=== PATIENT | female | born 2000 | race Caucasian/White ===

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

== ENCOUNTER → 2021-06-10 09:56 | Outpatient (BNVA) | payer BC, MEDICAID, SELFPAY | PROVIDERS: PCP Nurse Practitioner Family; Visit Provider Nurse Practitioner Family | DX: Z20.822 Contact with and (suspected) exposure to COVID-19 (principal) | CPT/HCPCS: 87635 ==

== ENCOUNTER 2021-07-27 09:30 | Outpatient (CLI) | payer BC, MEDICAID, SELFPAY ==
--- NOTE | 2021-07-27 09:42 | NM_ITS ---
WS: [id number] NUCLEAR MEDICINE HIDA SCAN CLINICAL INFORMATION: RUQ PAIN TECHNIQUE: Following intravenous administration of 7.7 mCi of technetium 99m mebrofenin, images of th e abdomen were obtained over the course of 60 minutes. Next, gallbladder ejection fraction was determ ined by obtaining preprandial and one-hour postprandial images of the gallbladder following oral dillon stion of Ensure. COMPARISON: Ultrasound 12/24/20 FINDINGS: Normal hepatic uptake at 5 minutes. Normal hepatic excretion. Normal biliary to bowel transit. Gallbl adder is not visualized by 60 minutes. Imaging was extended and gallbladder visualized at 120 minutes . Gallbladder appears contracted. No significant emptying on the gallbladder ejection fraction images. NM/NM hepatobiliary w phar* [id number] IMPRESSION: 1. Delayed gallbladder filling with small contracted gallbladder seen at 120 m inutes. 2. No significant emptying on the ejection fraction imaging. 3. Findings compatible with gallbladder dysfunction and suspicious for chronic acalculous cholecystitis. No cholelithiasis seen on the prior ultrasound imagi ng.
== END 2021-07-27 09:31 | disposition home or self-care (01) ==
LOC: RAD 09:33
PROVIDERS: PCP Nurse Practitioner Family; Visit Provider Nurse Practitioner Family
DX: R10.11 Right upper quadrant pain (principal)
CPT/HCPCS: 78227; A9537

== ENCOUNTER 2021-08-20 08:38 | Day surgery (SDC) | payer BC, MEDICAID, SELFPAY ==
[2021-08-19 15:42] VITALS: BMI 40.2
[2021-08-20] VITALS (9 sets, daily range): BP systolic 108–131; BP diastolic 64–91; PULSE 69–116; RESP 18–21; TEMP 36.1–36.4; O2SAT 95–100
--- NOTE | 2021-08-20 09:07 | P.HP_ITS ---
Same Day Surgery H&P Indication for Procedure/HPI DATE OF PROCEDURE: August 20, 2021 CHIEF COMPLAINT/INDICATIONFOR SURGICAL PROCEDURE: biliary dyskinesia PREOP DIAGNOSIS: biliary dyskinesia PLANNED PROCEDURE: Operation Date: 08/20/21 10:00 Proposed Procedures p Laparoscopic Cholecystectomy 35061/k82.8(Not Applicable) - Trey Moore MD Medications/Allergies* Home Medications Medication Instructions Recorded Confirmed Type sertraline 50 mg tablet 50 mg PO DAILY 08/19/21 08/20/21 History Allergies/Adverse Reactions Allergy/AdvReac Type Severity Reaction Status Date / Time grape flavor Allergy ALGY-Rash Verified 08/20/21 08:53 Pertinent History/Comorbid Conditions* Surgical History (Updated 08/11/21 @ 10:54 by Trey Moore MD) History of wisdom tooth extraction Social History Smoking and tobacco status: current every day smoker cigarettes Pertinent Exam Findings alert, oriented x 3 and regular rate & rhythm Recommendations Surgery/Procedure today Coding Level of Care Code Acute Performance Test Architect for Ish Garcia
[2021-08-20 09:12] LABS: OR HCG Qualitative Urine Negative (Negative)
--- NOTE | 2021-08-20 10:10 | ANES.PREANE2 ---
Documented by User: Morena Gerardo CRNA 08/20/21 10:45 Pre-Anesthetic Assessment Height/Weight: Height 1.57 m Weight 99.79 kg Temp Pulse Resp BP Pulse Ox 97.5 F L 74 18 112/64 98 08/20/21 09:19 08/20/21 09:19 08/20/21 09:19 08/20/21 09:19 08/20/21 09:19 Preop Diagnosis: biliary dyskinesia Operation Date: 08/20/21 10:00 Proposed Procedures p Laparoscopic Cholecystectomy 24359/k82.8(Not Applicable) - Trey Moore MD Familial anesthetic complications: none Was Beta Eleanor taken within 24 hours: N/A Was Clonidine taken within 24 hours: N/A Last intake: Intake Last Liquid Date 08/19/21 Last Liquid Time 23:00 Last Solid Date 08/19/21 Last Solid Time 16:00 Social No alcohol and No tobacco Exam alert, oriented x 3 and clear to auscultation bilaterally Airway Submandibular: within normal limits Cervical ROM: within normal limits Mallampati: Class I Dentition: chipped (front top) and full History/ROS No significant complaints Anesthetic Plan ASA status: 1 Anesthesia: Anesthesia Evaluation and General Risk of > 500 ml blood loss (7ml/kg in children): No Medications/Allergies Home Medications Medication Instructions Recorded Confirmed Last Taken Type sertraline 50 mg tablet 50 mg PO DAILY 08/19/21 08/20/21 08/18/21 History docusate sodium 100 mg capsule 100 mg PO BID #30 cap 08/20/21 Unknown Rx (Colace) hydrocodone 5 mg-acetaminophen 325 1 tab PO Q6H PRN #20 tab 08/20/21 Unknown Rx mg tablet ondansetron HCl 4 mg tablet 4 mg PO Q8H 5 Days #15 tab 08/20/21 Unknown Rx Allergies Allergy/AdvReac Type Severity Reaction Status Date / Time grape flavor Allergy ALGY-Rash Verified 08/20/21 08:53 Current Medications Generic Name Dose Route Start Last Admin Trade Name Freq PRN Reason Stop Dose Admin Sodium Chloride 1,000 mls @ 30 mls/hr 08/20/21 09:00 08/20/21 10:33 Sodium Chloride 0.9% IV 08/21/21 08:59 30 mls/hr .Q24H WILLIAM Administration PFSH Anesthesia Surgical History (Updated 08/20/21 @ 10:12 by Trey Moore MD) History of wisdom tooth extraction Status post laparoscopic cholecystectomy (08/20/21) Social History Smoking and tobacco status: current every day smoker cigarettes Female Reproductive History Date of last menstrual period: 12/29/19 Data Anesthesia Cardiac Studies: No Data to Display
[2021-08-20] MEDS: sodium chloride 0.9% 1,000 ML 30 ML IV (10:33)
--- NOTE | 2021-08-20 11:16 | P.OP_ITS ---
Operative Report Date of procedure: August 20, 2021 Pre-op diagnosis: Biliary dyskinesia Post-op diagnosis: same Procedure done: Laparoscopic cholecystectomy Specimens removed/disposition: Gallbladder Surgeon: Trey Moore Anesthesia: General Condition: stable Disposition: PACU Procedure: The patient was taken to the operating room and was intubated under general anesthesia. After the antibiotic had been administered, the abdomen was prepped and draped in a sterile manner. Using a #15 blade, a 1 centimeter infraumbilical curvilinear incision was made and using an open Phlilip technique the peritoneal cavity was entered. A 10 millimeter port was placed and 15 millimeters of pneumoperitoneum was created. A 10 millimeter, 30 degrees scope was then introduced. Three 5 millimeter ports were placed in the epigastric, midclavicular and the anterior axillary line two fingerbreadths below the costal margin on the right side under the direct visualization. Ratcheted forceps were introduced into the lateral most port and was used to retract the fundus of the gallbladder cephalad and using forceps the infundibulum of the gallbladder was retracted laterally. Using L-hook cautery the peritoneum overlying the Calot's triangle was opened medially and laterally until the cystic duct and the cystic artery were skeletonized. Dissection was carried along the body of the gallblad cullen and after ensuring critical view of safety, 4 clips applied on the cystic duct and 3 clips applied on the cystic artery and cut leaving, 3 clips on the remaining portion of the duct and 2 clips on the remaining portion of the artery. The rest of the gallbladder was dissected off the liver using L-hook cautery. There was no bleeding or bile leaking noted from the gallbladder fossa and the clips appeared to be in place. An EndoCatch bag was introduced to remove the gallbladder. All the ports were removed under direct visualization and there was no bleeding noted from the port sites. The fascia of the umbilicus was closed using [id number] Vicryl sutures and the subcutaneous tissue was approximated using 3-0 Vicryl sutures. The skin at all four ports were closed using 4-0 Monocryl and Dermabond. A total of 10 millimeters of 0.5% Marcaine was infiltrated around the port sites. The patient was stable throughout the procedure.
[2021-08-20] MEDS: ondansetron 2 mg/ML SDV 2 mL 4 MG IVP (11:27)
[2021-08-20] MEDS: fentaNYL 50 mcg/mL INJ 2mL IVP (11:28)
[2021-08-20] MEDS: HYDROcodone-acetaminophen 5-325 mg Tablet 1 TAB PO (11:53)
--- NOTE | 2021-08-20 17:41 | ANE.PACU2 ---
Inpatient post-anesthesia follow up: Airway intact: Yes Vital signs: Temperature 97.4 F Pulse Rate 69 Respiratory Rate 18 Blood Pressure 123/69 Pulse Oximetry 98 Oxygen Delivery Me thod Room Air Oxygen Flow Rate 8 Fraction of Inspir ed Oxygen Hydration adequate: Yes Nausea and vomiting: No Pain level: 3 Mental status: Baseline
== END 2021-08-20 12:30 | disposition home or self-care (01) ==
PROVIDERS: Anesthesiology; PCP Nurse Practitioner Family; Visit Provider Surgery
PROC: 0FT44ZZ Resection of Gallbladder, Percutaneous Endoscopic Approach (ICD-10-PCS; CPT 47562; principal; 2021-08-20 09:50)
DX: K82.8 Other specified diseases of gallbladder (principal); F17.210 Nicotine dependence, cigarettes, uncomplicated
CPT/HCPCS: 47562; 84703; 88304; J0690; J1100; J1200; J1885; J2250; J2405; J2704; J2710; J3010; J3490; J7030

== ENCOUNTER 2021-08-24 13:22 | Emergency (ER) | payer BC, MEDICAID, SELFPAY ==
[2021-08-24 13:42] VITALS: BP 127/79; PULSE 72; RESP 18; TEMP 36.6; O2SAT 98; BMI 40.2
--- NOTE | 2021-08-24 13:49 | ED_ITS ---
HPI - Abdominal Pain General: Chief Complaint: Abdominal Pain Stated Complaint: possible rip of inner stitches Time Seen by Provider: 08/24/21 13:47 Source: patient Mode of arrival: ambulatory Limitations: no limitations History of Present Illness: 21-year-old female postop day #4 status post laparoscopic cholecystectomy. 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 There is no dehiscence of the wound there is no redness erythema no drainage no bleeding. No other symptoms no injury no direct blow she is not doing any heavy lifting. MD elicited complaint: abdominal pain Onset (ago): minute(s) Pain Consistency: intermittent Location: RUQ Severity: mild Quality: sharp Radiation: none Migration to: no migration Exacerbating factors: nothing Relieving factors: nothing Associated Symptoms: Denies anorexia, belching, bloating, change in bowel habits, change in stool character, chills, coffee ground emesis, constipation, GI cramping, diarrhea, dyspepsia, dysuria, excessive flatus, fever(s), heartburn, hematochezia, hematuria, hematemesis, fecal incontinence, loose stools, melena, nausea, poor appetite, syncope and vomiting Related Data: Date of Last Menstrual Period: 12/29/19 Review of Systems Const: Denies: fever(s) or chills Card: Denies: syncope Resp: Denies: dyspnea, productive cough or non-productive cough GI: Denies: nausea, vomiting, hematemesis, coffee ground emesis, heartburn, diarrhea, constipation, bloating, GI cramping, belching, excessive flatus, fecal incontinence, change in bowel habits, change in stool character, hematochezia or melena : Denies: dysuria or hematuria Skin/Breast: Denies: rash or pruritus PFSH ED PFSH: Surgical History History of wisdom tooth extraction Status post laparoscopic cholecystectomy (08/20/21) Social History Smoking and tobacco status: current every day smoker cigarettes Female Reproductive History: Date of last menstrual period: 12/29/19 Physical Exam Const: COMMON NORMALS: no acute distress GENERAL APPEARANCE: cooperative and comfortable ORIENTATION/CONSCIOUSNESS: Yes awake, Yes oriented to person, Yes oriented to place and Yes oriented to time HENMT: COMMON NORMALS: normocephalic and atraumatic HEAD & SCALP: normocephalic and atraumatic Neck/C-Spine: COMMON NORMALS: no JVD Resp: COMMON NORMALS: normal respiratory effort, No retractions, No use of accessory muscles and clear to auscultation bilaterally AUSCULTATION: clear to auscultation bilaterally Cardio: COMMON NORMALS: no JVD, regular rate, regular rhythm and No murmurs present (Cardio) RATE: regular rate RHYTHM: regular rhythm GI: COMMON NORMALS: Soft to palpation and No hepatosplenomegaly present AUSCULTATION: Yes normoactive bowel sounds PALPATION: Yes Soft to palpation, No Tenderness to palpation present (GI), No Guarding due to palpation present (GI) and Yes No hepatosplenomegaly present Neuro: SENSORIUM/ORIENTATION: Yes oriented to person, Yes oriented to place and Yes oriented to time Skin: OTHER: Dermabond over abdominal port incisions no evident skin breakdown ulceration erythema no drainage no bleeding no induration no palpable defects of the abdominal wall no masses palpable underlying the skin incisions Course Vital Signs: Vital signs: Vital Signs Temperature 97.9 F 08/24/21 13:42 Pulse Rate 72 08/24/21 13:42 Respiratory Rate 18 08/24/21 13:42 Blood Pressure 127/79 08/24/21 13:42 Pulse Oximetry 98 08/24/21 13:42 MDM - Abdominal Pain Medical Decision Making No intervention needed observe avoid stretching of the abdominal wall reaching above the head no heavy lifting follow-up with Dr. Moore tomorrow as previously scheduled Discharge Plan Discharge Patient Disposition: Home Clinical Impression: Status post laparoscopic cholecystectomy, Abdominal wall pain Condition: Stable Prescriptions: No Action sertraline 50 mg tablet 50 mg PO DAILY 0RF hydrocodone-acetaminophen 5-325 mg tablet 1 tab PO Q6H PRN (Reason: pain) Qty: 20 0RF ondansetron HCl 4 mg tablet 4 mg PO Q8H 5 Days Qty: 15 0RF Colace 100 mg capsule 100 mg PO BID Qty: 30 0RF Discharge Orders: Discharge ED (Routine); Ordered 08/24/21 Ordered By: Steven Ross Referrals: Kayla Gregg FNP [Primary Care Provider] - Discharge Diet: Usual diet Discharge Activity: Limit activity as instructed Patient Instructions: Abdominal Pain (ED), Opioid Safety Activity Restrictions/Additional Instructions: Follow-up with Dr. 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
[2021-08-24 14:00] VITALS: BP 127/79; PULSE 72; RESP 18; O2SAT 98
== END 2021-08-24 14:03 | disposition home or self-care (01) ==
PROVIDERS: Emergency Provider Family Medicine; PCP Nurse Practitioner Family
DX: R10.11 Right upper quadrant pain (principal); Z98.890 Other specified postprocedural states; Z90.49 Acquired absence of other specified parts of digestive tract; F17.210 Nicotine dependence, cigarettes, uncomplicated
CPT/HCPCS: 99281

== ENCOUNTER → 2021-08-25 11:03 | Outpatient (BNVA) | payer BC, MEDICAID, SELFPAY | PROVIDERS: PCP Nurse Practitioner Family; Visit Provider Surgery | DX: Z98.890 Other specified postprocedural states (principal); Z90.49 Acquired absence of other specified parts of digestive tract ==

== ENCOUNTER → 2021-12-25 15:25 | Outpatient (BNVA) | payer BC, MEDICAID, SELFPAY | PROVIDERS: PCP Nurse Practitioner Family; Visit Provider Obstetrics & Gynecology | DX: Z30.9 Encounter for contraceptive management, unspecified (principal) | CPT/HCPCS: 81025 ==

== ENCOUNTER 2022-05-03 16:46 | Outpatient (CLI) | payer BC, MEDICAID, SELFPAY ==
--- NOTE | 2022-05-03 17:05 | MR_ITS ---
WS: [id number] MRI CERVICAL SPINE NONCONTRAST TECHNIQUE: Sagittal T1, T2 and STIR imaging. Axial T2, gradient, and fiesta imaging. CLINICAL INFORMATION: NECK PAIN COMPARISON: None. FINDINGS: Straightening with slight reversal normal cervical lordosis. Cord signal is normal. Tiny central prot rusions in the cervical spine more prominent at C6-C7. C2-C3: Normal. C3-C4: Mild disc bulging with slight effacement of ventral thecal sac. Mild LEFT and no RIGHT foramin al narrowing. Mild facet arthropathy. Spinal canal is patent. C4-C5: Tiny shallow central protrusion with a tiny annular fissure. Mild facet arthropathy. Spinal ca nal and foramen are patent. C5-C6: Minimal disc bulging with slight effacement of ventral thecal sac. Mild facet arthropathy. Spi nal canal and foramen are patent. C6-C7: Mild disc bulging with osteophytic ridging. Tiny RIGHT pericentral protrusion. Slight contact of the cervical cord with mild central canal stenosis. Mild LEFT and no significant RIGHT foraminal n arrowing. C7-T1: Normal Visualized brain stem structures: Normal. Prevertebral soft tissues: Normal. MR/MR cervical spin wo con* [id number] IMPRESSION: 1. Straightening with slight reversal normal cervical lordosis. No high-grade central canal narrowing. Cord signal is normal. 2. Small shallow RIGHT pericentral protrusion C6-C7 with slight indentation on the cervical cord with mild central canal stenosis. Mild LEFT bony foraminal n arrowing at this level. 3. Mild LEFT C3-C4 and LEFT C5-C6 foraminal narrowing.
== END 2022-05-03 16:47 | disposition home or self-care (01) ==
LOC: RAD 16:47
PROVIDERS: PCP Nurse Practitioner Family; Visit Provider Nurse Practitioner Family
DX: M50.223 Other cervical disc displacement at C6-C7 level (principal); M48.02 Spinal stenosis, cervical region
CPT/HCPCS: 72141

== ENCOUNTER → 2022-07-04 16:44 | Outpatient (BNVA) | payer BC, MEDICAID, SELFPAY | PROVIDERS: PCP Nurse Practitioner Family; Visit Provider Nurse Practitioner Family | DX: J02.9 Acute pharyngitis, unspecified (principal) | CPT/HCPCS: 87071; 87880 ==

== ENCOUNTER → 2023-04-19 07:07 | Day surgery (SDC) | payer BC, MEDICAID, SELFPAY ==
--- NOTE | 2023-04-15 10:58 | ANES.PREANE2 ---
Pre-Anesthetic Assessment Height/Weight: Height 1.57 m Operation Date: 04/19/23 07:00 Proposed Procedures p Laparoscopic bilateral salpingectomy 38394,Z30.2(Bilateral) - Isael Vincent MD Familial anesthetic complications: none Social No alcohol and No tobacco Exam alert, oriented x 3, clear to auscultation bilaterally and regular rate & rhythm Airway Mallampati: Class I Dentition: chipped Anesthetic Plan ASA status: 1 Anesthesia: General Risk of > 500 ml blood loss (7ml/kg in children): No Medications/Allergies Home Medications Medication Instructions Recorded Confirmed Last Taken Type No Known Home Medications 04/11/23 04/11/23 Unknown History Allergies Allergy/AdvReac Type Severity Reaction Status Date / Time grape flavor Allergy ALGY-Rash Verified 04/15/23 10:50 [facility] Anesthesia Surgical History History of wisdom tooth extraction Status post laparoscopic cholecystectomy (08/20/21) Family History Mother Hypertension Denies family history of Colon cancer Ovarian cancer Diabetes Heart disease Hypercholesteremia Breast cancer Uterine cancer Thyroid disease Stroke Social History Smoking and tobacco/nicotine status: current every day tobacco/nicotine user cigarettes Quit status (tobacco/nicotine): considering quitting Alcohol intake: never Substance/Drug Use: never Data Anesthesia Cardiac Studies: No Data to Display
[2023-04-15 12:13] LABS: Basophils % 0.3 %; Eosinophils # 0.2 10^3/uL (0.0-0.8); Eosinophils % 2.6 %; Hematocrit 44.6 % (36-47); Lymphocytes # 2.5 10^3/uL (0.8-4.8); Lymphocytes % 35.6 %; Mean Corpuscular HGB Conc 33.4 g/dL (30-55); Mean Corpuscular Hemoglobin 28.8 pg (27-33); Mean Corpuscular Volume 86.3 fl (85-98); Mean Platelet Volume 9.4 fL (7.4-10.4); Monocytes # 0.6 10^3/uL (0.2-0.9); Monocytes % 8.4 %; Neutrophils # 3.69 10^3/uL (1.8-7.7); Neutrophils % 52.8 %; Nucleated Red Blood Cells % 0 %; Platelet Count 323 10^3/cmm (157-399); Red Blood Count 5.17 10^6/uL (3.85-5.65); Red Cell Distribution Width 13.1 % (12.1-15.1); White Blood Count 6.99 10^3/uL (3.29-11.43)
[2023-04-15 12:34] LABS: Alanine Aminotransferase 27 U/L (0-33); Albumin Level 4.4 g/dL (3.5-5.2); Alkaline Phosphatase 95 U/L (35-105); Aspartate Amino Transferase 17 U/L (0-32); Blood Urea Nitrogen 11 mg/dL (6-20); Carbon Dioxide 27 mmol/L (22-29); Chloride 104 mmol/L (98-107); Globulin 2.7 g/dL (1.3-4.6); Glomerular Filtration Rate 105.6 mL/min (90-130); Glucose 89 mg/dL (65-115); Osmolality Calculated 289 mOsm/kg (285-295); Sodium 140 mmol/L (136-145); Total Bilirubin 0.4 mg/dL (0.15-1.2); Total Protein 7.1 g/dL (6.6-8.7)
[2023-04-15 13:12] LABS: Charge for UA Resulting for Rev
[2023-04-15 13:16] LABS: Add Urine Microscopic? YES; Bilirubin Urine Neg (Negative); Blood Urine Neg (Negative); Glucose Urine UA Norm (Normal); Ketones Urine 1+ (Negative); Leukocyte Esterase Urine Negative (Negative); Nitrate Urine Negative (Negative); Protein Urine Neg (Negative); Specific Gravity, Urine 1.015 (1.005-1.030); Urine Appearance Clear (CLEAR); Urine Color Yellow (Yellow); Urobilinogen Urine Norm (Negative); pH Urine 6.5 (5-7)
[2023-04-19] VITALS (13 sets, daily range): BP systolic 92–127; BP diastolic 43–77; PULSE 62–100; RESP 14–17; TEMP 36.3–36.4; O2SAT 94–100; BMI 39.3
[2023-04-19] MEDS: sodium chloride 0.9% 1,000 ML 30 ML IV (07:48)
--- NOTE | 2023-04-19 08:56 | W.PM.OPSUD ---
Surgery/Procedure H&P Update DATE OF PROCEDURE: April 19, 2023 DATE H&P PERFORMED: 04/11/23 H&P UPDATE INFORMATION: I have reviewed H&P completed within last 30 days, I have examined patient prior to procedure and No changes to prior documentation PREOP DIAGNOSIS: desire permanent sterilization PLANNED PROCEDURE: Operation Date: 04/19/23 09:10 Proposed Procedures p Laparoscopic bilateral salpingectomy 70215,Z30.2(Bilateral) - Isael Vincent MD
--- NOTE | 2023-04-19 09:02 | P.ANESUD_ITS ---
Pre-Anesthetic Update Pre-Anesthetic Assessment: Date of Surgery/Procedure: 04/19/23 Preop Adelia gnosis: desire permanent sterilization Proposed Procedure: Operation Date: 04/19/23 09:10 Proposed Procedures p Laparoscopic bilateral salpingectomy 90280,Z30.2(Bilateral) - Isael Vincent MD Any changes to Pre-Anesthetic Assessment?: No Last Intake: Intake Last Liquid Date 04/18/23 Last Liquid Time 22:00 Last Solid Date 04/18/23 Last Solid Time 22:00 Vitals: Pulse Rhythm Regular 04/19/23 07:36 Pulse Strength 3+ Normal 04/19/23 07:36 Oxygen Delivery Me thod Room Air 04/19/23 07:36 Exam: Pre-Anes Outpt Exam: alert, oriented x 3, clear to auscultation bilaterally and regular rate & rhythm Cardiac Studies: No Data to Display
[2023-04-19] MEDS: ceFAZolin 2,000 MG in sodium chloride 0.9% (plus) 50 ML 100 MG IV (09:17)
[2023-04-19] MEDS: BUPivacaine 0.5% INJ 10 mL INJECTION (09:58)
--- NOTE | 2023-04-19 10:17 | PM.OP ---
Operative Report Date of procedure: April 19, 2023 Pre-op diagnosis: Desire permanent sterilization Post-op diagnosis: Same as above Procedure done: Laparoscopic bilateral salpingectomy Specimens removed/disposition: Left and right fallopian tubes Surgeon: Isael Vincent MD Estimated blood loss (mL): 5 IV fluids (mL): 1,000 Urine output (mL): 110 Complications: None Findings: Normal pelvic organ Brief History: Mrs. Garcia 22-year-old female desires permanent sterilization Procedure: After informed consent, the patient was taken to the operating room where general anesthesia was administered. She was placed in the dorsal lithotomy position and prepped and draped in sterile fashion. Pre-Procedure Time-Out verifying the correct patient identity, correct procedure verified with consent, correct site and side, correct patient position, availability of correct implants and any special equipment or requirements was performed and acknowledge by the OR team. The patient was examined under anesthesia and found to have a normal uterus with normal adnexa. A weighted speculum was placed in the vagina, and the anterior lip of cervix was grasped with the single toothed tenaculum. A uterine manipulator was advanced into the endocervical canal and uterus. The tenaculum was removed after uterine manipulator was secured. The speculum was removed from the vagina. An intraumbilical incision was made with a scalpel. While tenting up on the abdomen, a Verres needle was admitted into the intra-abdominal cavity. A saline drop test was performed and noted to be within normal limits. Pneumoperitoneum was attained with 4 liters of carbon dioxide. The Verres needle was removed. A 5 mm Opitc view trocar and sleeve were admitted into the abdomen and laparoscopic confirmation of location was achieved. A second incision was made 3 cm above the symphysis pubis, and a 5 mm trocar sleeves were admitted into the abdomen under direct laparoscopic visualization without complication. A survey revealed normal abdominal anatomy with the exception of string adhesion to the right lower anterior abdominal wall. A 5 mm blunt probe was advanced through the second trocar sleeve, and light manipulation of ovaries and uterus to assess the posterior aspects was performed. The pelvic survey shows normal uterus, left and right adnexa. The patient was placed into Trendelenburg position. The fallopian tubes were inspected bilaterally and the fimbriated ends of the fallopian tubes were visualized bilaterally. Attention was then directed to the right side. The fallopian tube and mesosalpinx were grasped and the underlying mesosalpinx was cauterized and cut using the Ligasure device. Serial cauterization and cutting was used to separate the fallopian tube from the underlying mesosalpinx until it could be amputated cutting it approximated 2 cm from the cornua. Attention was then turned to the contralateral fallopian tube, which was removed in similar fashion. Both specimens were removed through the trocar and sent to pathology. The instruments were removed. The suprapubic trocar port was removed under direct visualization insuring good hemostasis. The carbon dioxide was allowed to escape from the abdomen. The intraumbilical trocar sleeve was withdrawn under visualization with laparoscope in the sleeve to insure hemostasis. The skin incisions were closed with 3-O Monocryl subcuticular stich and Dermabond. The instruments were removed from the vagina, and excellent hemostasis was noted. The patient tolerated the procedure well, and sponge, lap and needle count were correct times two. The patient was taken to the recovery room in good condition.
[2023-04-19] MEDS: ondansetron 2 mg/ML SDV 2 mL 4 MG IVP (11:11)
[2023-04-19] MEDS: HYDROcodone-acetaminophen 5-325 mg Tablet 1 TAB PO (12:20)
--- NOTE | 2023-04-19 14:22 | ANE.PACU2 ---
Inpatient post-anesthesia follow up: Airway intact: Yes Vital signs: Temperature 97.4 F Pulse Rate 70 Respiratory Rate 17 Blood Pressure 127/70 Pulse Oximetry 98 Oxygen Delivery Me thod Room Air Oxygen Flow Rate 6 Fraction of Inspir ed Oxygen Hydration adequate: Yes Nausea and vomiting: No Pain level: 3 Mental status: Baseline
== END | disposition home or self-care (01) ==
PROVIDERS: Visit Provider Obstetrics & Gynecology
PROC: (CPT 58661; principal; 2023-04-19 09:10)
DX: Z30.2 Encounter for sterilization (principal); F17.210 Nicotine dependence, cigarettes, uncomplicated
CPT/HCPCS: 58661; 36415; 80053; 81003; 81025; 85025; 86850; 86900; 88302; J0690; J1100; J1200; J1885; J2250; J2405; J2704; J2710; J3010; J3490; J7030

== ENCOUNTER → 2023-04-20 10:46 | Outpatient (BNVA) | payer BC, MEDICAID, SELFPAY | PROVIDERS: Visit Provider Obstetrics & Gynecology | DX: Z01.89 Encounter for other specified special examinations (principal) | CPT/HCPCS: 81000; 87086 ==

== ENCOUNTER → 2023-11-07 09:20 | Outpatient (BNVA) | payer BC, MEDICAID, SELFPAY | PROVIDERS: Visit Provider Nurse Practitioner Family | DX: R39.9 Unspecified symptoms and signs involving the genitourinary system (principal); R30.0 Dysuria | CPT/HCPCS: 81000; 87491; 87591 ==

== ENCOUNTER → 2023-12-11 17:01 | Outpatient (BNVA) | payer BC, MEDICAID, SELFPAY | PROVIDERS: Visit Provider Emergency Medicine | DX: J02.9 Acute pharyngitis, unspecified (principal) | CPT/HCPCS: 87071; 87880 ==

== ENCOUNTER → 2024-03-26 18:48 | Outpatient (BNVA) | payer BC, MEDICAID, SELFPAY | PROVIDERS: Visit Provider Registered Nurse Neonatal Intensive Care | DX: Z20.2 Contact with and (suspected) exposure to infections with a predominantly sexual mode of transmission (principal) | CPT/HCPCS: 87491; 87591 ==

== ENCOUNTER 2024-12-31 20:03 | Emergency (ER) | payer MEDICAID, SELFPAY ==
[2024-12-31 20:05] VITALS: BP 182/78; PULSE 87; RESP 14; TEMP 36.6; O2SAT 97
--- NOTE | 2024-12-31 20:13 | ECG_ITS ---
[facility] Test Date: 2024-12-31 Pat Name: Angie Garcia Department: Room: Gender: Female Director Of Staff Development: : 2000 Requested By: Rob Hudson Order Number: [id number] Daphne MD: Marina Calix M.D. Measurements Intervals [place] Rate: 81 P: 38 MI: 161 QRS: 51 QRSD: 78 T: 45 QT: 365 QTc: 424 Interpretive Statements SINUS RHYTHM No previous ECG available for comparison Electronically Signed On 01-05-2025 09:15:45 CDT by Marina Calix M.D. [email or web address] [id number]
--- OUTSIDE RECORDS SUMMARY | 2024-12-31 20:15 | XMS_ITS | Clinical Summary ---
Author Organization [facility] Address [address] Fernandezn: [place] [address] Care Team Providers Care Tobacco Drummer Name Role Phone Steven Ross DO Primary Care Provider Allergies Active Allergy Reactions Criticality Noted Date Comments Grape Flavoring Hives High 11/22/2017 Medications ibuprofen (MOTRIN) 400 mg tabletIndication s:Splenomegaly Take 400 mg by mouth every 6 hours as needed for Pain or Pain, Mild. 11/22/2017 Active Active Problems Problem Noted Date Diagnosed Date Splenomegaly 11/22/2017 Overview (09/11/2020): Stomach pain, went to the ER--> Splenomegaly seen on images. Epigastric and left upper quadrant pain. 10 th grade. 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 Gender Identity Not on file Sexual Orientation Not on file Last Filed Vital Signs Vital Sign Reading Time Taken Comments Blood Pressure 129/60 11/22/2017 10:58 AM CDT Pulse 60 11/22/2017 10:58 AM CDT Temperature 36.6 C (97.9 F) 11/22/2017 10:58 AM CDT Respiratory Rate 16 11/22/2017 10:58 AM CDT Oxygen Saturation - - Inhaled Oxygen Concentration - - Weight 78.9 kg (174 lb) 11/22/2017 10:58 AM CDT Height 154.9 cm (5' 1 ) 11/22/2017 10:58 AM CDT Body Mass Index 32.88 11/22/2017 10:58 AM CDT Plan of Treatment Health Maintenance Due Date Last Done Comments CHLAMYDIA SCREENING (ANNUAL) 11-24 YEARS 2012 HPV VACCINES (1 - 3-dose series) 2016 DTAP/TDAP/TD VACCINES (1 - Tdap) 2020 HEPATITIS B VACCINES (1 of 3 - 19+ 3-dose series) 06/2020 CERVICAL CANCER SCREENING 2022 HPV/Cotest (21-29) 2022 PAP SMEAR 2022 INFLUENZA VACCINE (#1) 2024 Insurance * Guarantor: ANGIE MISTRY Account Type Relation to Patient Date of Phone Billing Address Personal/Family [address] [place] [address] RX [employer] Medicaid Care Teams Tobacco Drummer Relationship Specialty Start Date End Date Steven Ross DO [address] [address] PCP - General Family Practice 11/14/17
--- NOTE | 2024-12-31 20:27 | ED_ITS ---
HPI - Dizziness 2 General: Chief Complaint: Dizziness Stated Complaint: Dizzy Time Seen by Provider: 12/31/24 20:16 History of Present Illness: HPI Narrative: Patient comes in with dizziness. She states that for the past few hours she has been having off-and-on dizziness or feel like she is going to pass out. States that she has to stop and sit down temporarily. Denies any chest pain, shortness of breath. Denies fever, cough, congestion, vomiting, diarrhea. Denies abdominal pain. Denies any recent changes in food, medication, or [id number] supplement intake. States she was in outside today. States she has been inside doing paperwork most of the day. Denies missing any meals or any dehydration. Denies excessive caffeine use. She states she has had a mild headache that started before the symptoms earlier today. States she has frequent mild headaches like this secondary to having a 6-year-old child. She states this is nothing new. On physical exam her NIHSS equals 0. Normal truncal stability, normal gait. Will check labs, give IV fluids, check EKG, and reassess. Differential diagnosis: Acute arrhythmia, acute posterior stroke, acute , acute electrolyte abnormality, acute dehydration, acute complex migraine Associated symptoms: Denies chest pain, nausea, palpitations or vomiting Related Data Previous Rx's ?Medication ?Instructions ?Recorded fluconazole 150 mg tablet 150 mg PO Q3D 2 doses #2 tab s 03/26/24 Allergies Allergy/AdvReac Type Severity Reaction Status Date / Time grape flavor Allergy ALGY-Rash Verified 12/31/24 20:04 Review of Systems 2 Const: Denies: fever(s) or body aches ENMT: Denies: throat pain or odynophagia Card: Denies: chest pain or palpitations Resp: Denies: dyspnea or productive cough GI: Denies: abdominal pain, nausea or vomiting PFSH ED 2 PFSH: Surgical History H/O bilateral salpingectomy (~04/19/23) Status post laparoscopic cholecystectomy (08/20/21) History of wisdom tooth extraction Family History Mother Hypertension Denies family history of Colon cancer Ovarian cancer Diabetes Heart disease Hypercholesteremia Breast cancer Uterine cancer Thyroid disease Stroke Social History Smoking and tobacco/nicotine status: unknown if used tobacco/nicotine Female Reproductive History: Date of last menstrual period: 11/07/24 Physical Exam 2 Const: COMMON NORMALS: no acute distress and healthy appearing HENMT: COMMON NORMALS: normocephalic and atraumatic HEAD & SCALP: n ormocephalic and atraumatic Eye: COMMON NORMALS: Equal, round and reactive pupils present and EOMs intact bilaterally PUPIL: Yes Equal, round and reactive pupils present Neck/C-Spine: COMMON NORMALS: full ROM and supple Resp: COMMON NORMALS: normal respiratory effort, No retractions and No use of accessory muscles Cardio: COMMON NORMALS: regular rate and regular rhythm RATE: regular rate RHYTHM: regular rhythm GI: COMMON NORMALS: Normal to inspection, nondistended, normoactive bowel sounds present, Soft to palpation and non-tender PALPATION: Yes Soft to palpation Extremity: COMMON NORMALS: normal to inspection and full ROM Neuro: OTHER: Neuroexam grossly intact with no lateralizing symptoms. NIHSS equals 0, normal gait, normal truncal stability, strength 5 out of 5 in all 4 extremities, sensation intact in all 4 extremities Psych: COMMON NORMALS: mental status grossly normal and cooperative Skin: COMMON NORMALS: no rashes or lesions noted and no wounds GENERAL SKIN EXAM: no rashes or lesions noted Course 2 Vital Signs: Vital signs: Vital Signs Temperature 97.9 F 12/31/24 20:05 Pulse Rate 87 12/31/24 20:05 Respiratory Rate 14 12/31/24 20:05 Blood Pressure 182/78 12/31/24 20:05 Pulse Oximetry 97 12/31/24 20:05 Oxygen Delivery Me thod Room Air 12/31/24 20:05 MDM - Dizziness Medical Decision Making On reassessment I talked with the patient about her test results. She has remained asymptomatic here. She continues to deny any chest pain, or difficulty breathing. We discussed symptoms that should prompt immediate return to the emergency department. Will discharge at this time with precautions to return for worsening or changing symptoms. Lab Data 12/31/24 20:40 12/31/24 20:40 Laboratory Results WBC 8.40 10^3/uL (3.29-11.43) 12/31/24 20:40 RBC 4.45 10^6/uL (3.85-5.65) 12/31/24 20:40 Hgb 12.40 g/dL (11.27-16.99) 12/31/24 20:40 Hct 37.1 % (36-47) 12/31/24 20:40 MCV 83.4 fl (85-98) L 12/31/24 20:40 MCH 27.9 pg (27-33) 12/31/24 20:40 MCHC 33.4 g/dL (30-55) 12/31/24 20:40 RDW 12.9 % (12.1-15.1) 12/31/24 20:40 Plt Count 349 10^3/cmm (157-399) 12/31/24 20:40 MPV 9.3 fL (7.4-10.4) 12/31/24 20:40 Neut % (Auto) 51.6 % 12/31/24 20:40 Lymph % (Auto) 36.4 % 12/31/24 20:40 [place] % (Auto) 8.3 % 12/31/24 20:40 Eos % (Auto) 3.1 % 12/31/24 20:40 Baso % (Auto) 0.4 % 12/31/24 20:40 Neut # (Auto) 4.33 10^3/uL (1.8-7.7) 12/31/24 20:40 Lymph # (Auto) 3.1 10^3/uL (0.8-4.8) 12/31/24 20:40 Frederick # (Auto) 0.7 10^3/uL (0.2-0.9) 12/31/24 20:40 Eos # (Auto) 0.3 10^3/uL (0.0-0.8) 12/31/24 20:40 Baso # (Auto) 0.0 10^3/uL (0.0-0.1) 12/31/24 20:40 Nucleated RBC % (auto) 0 % 12/31/24 20:40 Nucleated RBCs # 0.0 /100WBC 12/31/24 20:40 Sodium 139 mmol/L (136-145) 12/31/24 20:40 Potassium 4.0 mmol/L (3.5-5.1) 12/31/24 20:40 Chloride 102 mmol/L (98-107) 12/31/24 20:40 Carbon Dioxide 26 mmol/L (22-29) 12/31/24 20:40 Anion Gap 15.0 (5-19) 12/31/24 20:40 BUN 11 mg/dL (6-20) 12/31/24 20:40 Creatinine 0.9 mg/dL (0.5-0.9) 12/31/24 20:40 GFR Calculation 77.6 mL/min (90-130) L 12/31/24 20:40 Glucose 98 mg/dL (65-115) 12/31/24 20:40 Calculated Osmolality 287 mOsm/kg (285-295) 12/31/24 20:40 Calcium 9.1 mg/dL (8.5-10.5) 12/31/24 20:40 Magnesium 1.9 mg/dL (1.7-2.3) 12/31/24 20:40 Troponin T Baseline < 6 ng/L (0-10) 12/31/24 20:40 HCG, Qual Negative (Negative) 12/31/24 20:40 Urine Color Yellow (Yellow) 12/31/24 20:40 Urine Appearance Clear (CLEAR) 12/31/24 20:40 Urine pH 6.0 (5-7) 12/31/24 20:40 Ur Specific [place] 1.026 (1.005-1.030) 12/31/24 20:40 Urine Protein Negative (Negative) 12/31/24 20:40 Urine Glucose (UA) Negative (Normal) 12/31/24 20:40 Urine Ketones Trace (Negative) 12/31/24 20:40 Urine Blood Negative (Negative) 12/31/24 20:40 Urine Nitrate Negative (Negative) 12/31/24 20:40 Urine Bilirubin Negative (Negative) 12/31/24 20:40 Urine Urobilinogen 1.0 mg/dL (Negative) 12/31/24 20:40 Ur Leukocyte Esterase Trace (Negative) A 12/31/24 20:40 Urine RBC None /hpf (0-2) 12/31/24 20:40 Urine WBC 0-4 /hpf (0-5) H 12/31/24 20:40 Ur Squamous Epith Cells 10-15 /hpf (0-5) H 12/31/24 20:40 Amorphous Sediment Not Reportable 12/31/24 20:40 Urine Bacteria Trace /hpf (NONE) 12/31/24 20:40 No radiology studies performed this visit Discharge Plan Discharge Patient Disposition: Home Clinical Impression: Light-headedness Condition: Stable Prescriptions: No Action fluconazole 150 mg tablet 150 mg PO Q3D Qty: 2 0RF Discharge Orders: Discharge ED (Routine); Ordered 12/31/24 Ordered By: Rob Hudson Referrals: Kayla Gregg FNP [Primary Care Provider, Unknown] Patient Instructions: Patient Portal & Felix Instructions Print Language: Vietnamese Coding Level of Care Code ED Hospital Superintendent for Ish Garcia
[2024-12-31 20:47] LABS: Hematocrit 37.1 % (36-47); Hemoglobin 12.40 g/dL (11.27-16.99); Mean Corpuscular HGB Conc 33.4 g/dL (30-55); Mean Corpuscular Hemoglobin 27.9 pg (27-33); Mean Corpuscular Volume 83.4 fl (85-98); Nucleated Red Blood Cells % 0 %; Platelet Count 349 10^3/cmm (157-399); Red Blood Count 4.45 10^6/uL (3.85-5.65); White Blood Count 8.40 10^3/uL (3.29-11.43)
[2024-12-31 20:49] LABS: HCG Qualitative Urine. Negative (Negative)
[2024-12-31 20:53] LABS: Glucose Urine UA Negative (Normal); Nitrate Urine Negative (Negative); Specific Gravity, Urine 1.026 (1.005-1.030)
[2024-12-31 21:01] LABS: UA Manual Slide Review YES
[2024-12-31 21:02] LABS: Add Urine Microscopic? YES
[2024-12-31 21:05] LABS: Troponin(5th) Baseline < 6 ng/L (0-10)
[2024-12-31 21:06] LABS: Anion Gap 15.0 (5-19); Blood Urea Nitrogen 11 mg/dL (6-20); Calcium 9.1 mg/dL (8.5-10.5); Carbon Dioxide 26 mmol/L (22-29); Chloride 102 mmol/L (98-107); Creatinine Clr Calc Pharmacy 116.3043; Glucose 98 mg/dL (65-115); Magnesium 1.9 mg/dL (1.7-2.3); Osmolality Calculated 287 mOsm/kg (285-295); Potassium 4.0 mmol/L (3.5-5.1); Sodium 139 mmol/L (136-145)
[2024-12-31 22:16] VITALS: BP 134/60; PULSE 61; RESP 18; O2SAT 98
== END 2024-12-31 22:15 | disposition home or self-care (01) ==
PROVIDERS: Emergency Provider Emergency Medicine; PCP Nurse Practitioner Family
DX: R42 Dizziness and giddiness (principal)
CPT/HCPCS: 36415; 80048; 81001; 81025; 83735; 84484; 85025; 93005; 96360; 99284; J7030

== ENCOUNTER 2025-01-18 17:15 | Emergency (ER) | payer MEDICAID, SELFPAY ==
--- OUTSIDE RECORDS SUMMARY | 2023-07-18 08:00 | XMS_ITS | Continuity of Care Document ---
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 - Active Periogard 0.12 % mouthwash This is an oral rinse. Swish with one capful for 30 seconds then spit out. Twice a day. DO NOT EAT OR DRINK FOR ONE HOUR FOLLOWING. - Active 1 Bottle Procedures Procedure Date Limited Oral Evaluation Problem Focused Extraction, Erupted Tooth Or Exposed Tayler t (Elevati Intraoral Periapical First Film Removal Of Impacted Tooth Soft Tissue Removal Of Impacted Tooth Partially Bony Removal Of Impacted Tooth Soft Tissue Removal Of Impacted Tooth Soft Tissue IV Moderate (conscious) Sedation/analges ia, 15 Min IV Moderate (conscious) Sedation/analges ia, 15 Min IV Moderate (conscious) Sedation/analges ia, 15 Min EDR Approval Note Limited Oral Evaluation Problem Focused EDR Approval Note Advance Directives Directive Yes / No Effective Date File Name No Information Encounters Encounter Description Practice Location Reason(s) For Visit Diagnoses Date Provider Providers Copied on Encounter [facility], [id number] [place], [place], [id number], [place] tel:[phone] [facility] Encounter for dental exam and cleaning w/o abnormal findings Kay Justice. [address], [place], [id number], [place]. tel:[phone] Referring Provider: Vinh Goode, [address] [place], [address] . tel:[phone] [facility], [id number] [place], [place], [id number], [place] tel:[phone] [facility] Encounter for dental exam and cleaning w/o abnormal findings No Information [facility], [id number] [place], [place], [id number], [place] tel:[phone] [facility] Encounter for dental exam and cleaning w/o abnormal findings No Information Family History Family Member Type Diagnosis Age At Onset No Information Payers Payer name Insurance type Covered democrat ID Mara snyder(s) Rupa [employer]enta[employer] CI [id number] Social History Type Description Quantity Date Captured Comments Alcohol Use Details Unknown Caffeine Use Details Unknown Tobacco Use Status No Information Smoking Status No Information Sex Female Sexual Orientation Don't Know Gender Identity Female Chief Complaint And Reason For Visit No Information Reason For Referral Reason For Referral No Information History Of Present Illness Encounter Date Complaint History Of Prese nt Illness No Information Functional Status Date Functional Assessmen t No Information Instructions Date Instruction Additional Infor mation No Information Assessments Type Assessment Date No Information Patient Care Teams Name Effective Dates (start - stop) Status Members No Information
[2025-01-18 17:19] VITALS: BP 114/65; PULSE 102; RESP 16; TEMP 37.8; O2SAT 97; BMI 45.8
--- OUTSIDE RECORDS SUMMARY | 2025-01-18 17:20 | XMS_ITS | Clinical Summary ---
Author Organization [facility] Address [address] 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
--- NOTE | 2025-01-18 17:47 | W.ED.FEMALGU ---
HPI - Female Genitourinary General: Chief complaint: Urogenital-Female Stated complaint: BV Lower ABD pain going into back Fever Time Seen by Provider: 01/18/25 17:37 Related Data Previous Rx's ?Medication ?Instructions ?Recorded fluconazole 150 mg tablet 150 mg PO Q3D 2 doses #2 tabs 03/26/24 Allergies Allergy/AdvReac Type Severity Reaction Status Date / Time grape flavor Allergy ALGY-Rash Verified 12/31/24 20:04 PFSH ED PFSH: Surgical History H/O bilateral salpingectomy (~04/19/23) Status post laparoscopic cholecystectomy (08/20/21) History of wisdom tooth extraction Family History Mother Hypertension Denies family history of Colon cancer Ovarian cancer Diabetes Heart disease Hypercholesteremia Breast cancer Uterine cancer Thyroid disease Stroke Social History Smoking and tobacco/nicotine status: unknown if used tobacco/nicotine Course Vital Signs: Vital signs: Vital Signs Temperature 100.1 F H 01/18/25 17:19 Pulse Rate 102 H 01/18/25 17:19 Respiratory Rate 16 01/18/25 17:19 Blood Pressure 114/65 01/18/25 17:19 Pulse Oximetry 97 01/18/25 17:19 Oxygen Delivery Me thod Room Air 01/18/25 17:19 Discharge Plan Discharge Condition: Stable Prescriptions: No Action fluconazole 150 mg tablet 150 mg PO Q3D Qty: 2 0RF Referrals: Kayla Gregg FNP [Primary Care Provider, Unknown] Print Language: Marshallese Coding Level of Care Code ED Control Panel Builder for Ish Garcia
--- NOTE | 2025-01-18 17:47 | W.ED.ABDPA2 ---
HPI - Abdominal Pain General: Chief Complaint: Urogenital-Female Stated Complaint: BV Lower ABD pain going into back Fever Time Seen by Provider: 01/18/25 17:37 Source: patient Mode of arrival: ambulatory Limitations: no limitations History of Present Illness: Patient is a 24-year-old female presents to ED today with a complaint of abdominal pain. Patient states last week she was having some lower abdominal/pelvic pain and subsequently seen at [facility]. She states they did a urine analysis and had her self collect vaginal swabs. She does have these results on her phone. Her UA was clear. Gonorrhea and chlamydia was negative. Trichomonas was negative. Yeast was negative. She was positive for BV. She was reportedly placed on Flagyl. Patient today is not complaining of vaginal discharge or vaginal odor. She is not having any painful intercourse. She states her pain today seems to be upper abdomen. She feels like pain radiates into her back. She has had some nausea without episodes of emesis. She feels like her bowel movements are normal. She arrives here with a low-grade temp of 100.1. MD elicited complaint: abdominal pain Pertinent past history: none Onset (ago): day(s) Pain Consistency: intermittent Location: Diffuse Severity: moderate Radiation: none Migration to: no migration Exacerbating factors: nothing Relieving factors: nothing Associated Symptoms: Reports fever(s) and nausea; Denies change in bowel habits, chills, diarrhea, dysuria, hematuria and vomiting Related Data Previous Rx's ?Medication ?Instructions ?Recorded fluconazole 150 mg tablet 150 mg PO Q3D 2 doses #2 tabs 03/26/24 Allergies Allergy/AdvReac Type Severity Reaction Status Date / Time grape flavor Allergy ALGY-Rash Verified 12/31/24 20:04 Review of Systems Const: Reports: fever(s); Denies: chills, body aches, fatigue or malaise ENMT: Denies: throat pain, odynophagia, nasal discharge, nasal congestion or sinus pain Card: Denies: chest pain Resp: Denies: dyspnea, productive cough, non-productive cough or chest congestion GI: Reports: abdominal pain and nausea; Denies: vomiting, diarrhea or change in bowel habits : Denies: flank pain, difficulty voiding, dysuria, urinary frequency, urinary urgency, urinary hesitancy, hematuria, genital pruritis, vaginal odor, vaginal discharge or dyspareunia Musc: Reports: back pain; Denies: neck pain, extremity pain, extremity swelling, joint pain, joint swelling or joint redness Skin/Breast: Denies: rash Neuro: Denies: headache(s), numbness in extremities, weakness in extremities, sensory changes or dizziness PFSH ED PFSH: Surgical History H/O bilateral salpingectomy (~04/19/23) Status post laparoscopic cholecystectomy (08/20/21) History of wisdom tooth extraction Family History Mother Hypertension Denies family history of Colon cancer Ovarian cancer Diabetes Heart disease Hypercholesteremia Breast cancer Uterine cancer Thyroid disease Stroke Social History Smoking and tobacco/nicotine status: unknown if used tobacco/nicotine Physical Exam Const: COMMON NORMALS: no acute distress, patient oriented x3, no limitations, alert and well nourished GENERAL APPEARANCE: cooperative NUTRITIONAL APPEARANCE: obese morbidly obese (BMI 45.9) ORIENTATION/CONSCIOUSNESS: Yes awake, Yes oriented to person, Yes oriented to place and Yes oriented to time HENMT: COMMON NORMALS: normocephalic and atraumatic HEAD & SCALP: normocephalic and atraumatic Eye: COMMON NORMALS: no scleral icterus Neck/C-Spine: COMMON NORMALS: full ROM, no lymphadenopathy, supple and no meningeal signs Chest: COMMONS NORMALS: normal inspection of the chest Resp: COMMON NORMALS: normal respiratory effort and clear to auscultation bilaterally AUSCULTATION: clear to auscultation bilaterally Cardio: COMMON NORMALS: regular rhythm RATE: tachycardic (mild) RHYTHM: regular rhythm GI: COMMON NORMALS: Normal to inspection, nondistended, normoactive bowel sounds present, Soft to palpation, No hepatosplenomegaly present and no masses INSPECTION: Yes normal to inspection AUSCULTATION: Yes normoactive bowel sounds PALPATION: Yes Soft to palpation, Yes Tenderness to palpation present (GI) (tenderness across upper abdomen), No Guarding due to palpation present (GI), No Rigid due to palpation and Yes No hepatosplenomegaly present : COMMON NORMALS: Yes no CVA tenderness BLADDER/KIDNEY EXAM: Yes no CVA tenderness Back/Pelvis: COMMON NORMALS: no CVA tenderness and thoracic and lumbar spine normal to inspection Extremity: COMMON NORMALS: normal to inspection GENERAL: Yes normal exam except as noted Neuro: COMMON NORMALS: patient oriented x3, moves all extremities, no focal motor deficits and no sensory deficits noted SENSORIUM/ORIENTATION: Yes alert, Yes oriented to person, Yes oriented to place and Yes oriented to time MENINGEAL SIGNS: Yes no meningeal signs Skin: COMMON NORMALS: no rashes or lesions noted GENERAL SKIN EXAM: no rashes or lesions noted Course Vital Signs: Vital signs: Vital Signs Temperature 100.1 F H 01/18/25 17:19 Pulse Rate 102 H 01/18/25 17:19 Respiratory Rate 16 01/18/25 17:19 Blood Pressure 114/65 01/18/25 17:19 Pulse Oximetry 97 01/18/25 17:19 Oxygen Delivery Me thod Room Air 01/18/25 17:19 MDM - Abdominal Pain Medical Decision Making Differential broad at this time. Blood work initiated. Plan on obtaining CT scan. Patient just last week was tested for STDs. She is not having pelvic pain at this time. No vaginal discharge or vaginal odor or dyspareunia. Low concern for PID. Certainly other surgical or acute intra-abdominal abnormalities could be present especially with the presence of her low-grade temp. At some point following my examination with patient, RN at spoken with patient she stated she wanted to leave. 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 I asked her if there were anything regarding her care that she was unsatisfied with and she said no. She states she will come back if symptoms worsen otherwise she will try to follow-up with urgent care or primary care. Differential Diagnosis Likely abdominal pain Medical Records I reviewed the patient's medical records. Lab Data I reviewed the patient's lab results. Labs/Radiology: Laboratory Results Urine Color Yellow (Yellow) 01/18/25 17:50 Urine Appearance Clear (CLEAR) 01/18/25 17:50 Urine pH 7.0 (5-7) 01/18/25 17:50 Ur Specific [place] 1.005 (1.005-1.030) 01/18/25 17:50 Urine Protein Negative (Negative) 01/18/25 17:50 Urine Glucose (UA) Negative (Normal) 01/18/25 17:50 Urine Ketones Negative (Negative) 01/18/25 17:50 Urine Blood Negative (Negative) 01/18/25 17:50 Urine Nitrate Negative (Negative) 01/18/25 17:50 Urine Bilirubin Negative (Negative) 01/18/25 17:50 Urine Urobilinogen 0.2 mg/dL (Negative) 01/18/25 17:50 Ur Leukocyte Esterase Negative (Negative) 01/18/25 17:50 Urine RBC 3-5 /hpf (0-2) 01/18/25 17:50 Urine WBC 0-5 /hpf (0-5) 01/18/25 17:50 Ur Squamous Epith Cells 0-5 /hpf (0-5) 01/18/25 17:50 Amorphous Sediment Not Reportable 01/18/25 17:50 Urine Bacteria None seen /hpf (NONE) 01/18/25 17:50 Hyaline Casts 0.40 /lpf 01/18/25 17:50 No radiology studies performed this visit Discharge Plan Discharge Patient Disposition: Left Against Medical Advice Clinical Impression: Abdominal pain Condition: Stable Prescriptions: No Action fluconazole 150 mg tablet 150 mg PO Q3D Qty: 2 0RF Referrals: Kayla Gregg FNP [Primary Care Provider, Unknown] Patient Instructions: Abdominal Pain (ED) Print Language: Slovenian Coding Level of Care Code ED Solar Project Engineer for Ish Garcia
[2025-01-18 18:23] LABS: Glucose Urine UA Negative (Normal); Nitrate Urine Negative (Negative); Specific Gravity, Urine 1.005 (1.005-1.030)
[2025-01-18 18:29] LABS: Add Urine Microscopic? YES
== END 2025-01-18 18:41 | disposition left against medical advice (07) ==
PROVIDERS: Emergency Provider Physician Assistant; PCP Nurse Practitioner Family
DX: R10.9 Unspecified abdominal pain (principal)
CPT/HCPCS: 81001; 99283; J9999

== ENCOUNTER 2025-02-04 13:24 | Emergency (ER) | payer MEDICAID, SELFPAY ==
--- OUTSIDE RECORDS SUMMARY | 2025-02-04 13:27 | XMS_ITS | Clinical Summary ---
Author Organization [facility] Address [address] [place] [address] Phone Care Team Providers Care Retirement Specialist Name Role Phone Steven Ross DO Primary Care Provider [phone] Allergies Active Allergy Reactions Criticality Noted Date Comments Grape Flavoring Hives High 11/22/2017 Medications ibuprofen (MOTRIN) 400 mg tabletIndication s:Splenomegaly Take 400 mg by mouth every 6 hours as needed for Pain or Pain, Mild. Active pantoprazole (PROTONIX) 40 mg Tablet, Delayed Release (E.C.)Indication s:Splenomegaly Take 1 Tablet (40 mg) by mouth daily. 60 Tablet 11/22/2017 Active lactulose (ENULOSE) 10 gram/15 mL 10 gram/15 mL solutionIndicati ons:Splenomegaly Take 30 mL by mouth 2 times daily. 400 mL 11/22/2017 Active Active Problems Problem Noted Date Diagnosed Date Splenomegaly 11/22/2017 Overview (11/22/2017): Stomach pain, went to the ER--> Splenomegaly [...] at Not on file Legal Sex Female 3:03 PM CDT Gender Identity Not on file Sexual Orientation Not on file Last Filed Vital Signs Vital Sign Reading Time Taken Comments Blood Pressure 129/60 11/22/2017 10:58 AM CDT Pulse 60 11/22/2017 10:58 AM CDT Temperature 36.6 C (97.9 F) 11/22/2017 10:58 AM CDT Respiratory Rate 16 11/22/2017 10:58 AM CDT Oxygen Saturation 98% 11/22/2017 10:58 AM CDT Inhaled Oxygen Concentration - - Weight 78.9 [...] SMEAR 2022 INFLUENZA VACCINE (#1) 2024 Insurance RX INFOCROSSING Medicaid [facility] MEDICAID [facility] MEDICAID Care Teams Retirement Specialist Relationship Specialty Start Date End Date Steven Ross DO [address] [address] PCP - General Family Practice 11/14/17
[2025-02-04 13:38] VITALS: BP 113/79; PULSE 78; RESP 16; TEMP 36.7; O2SAT 99
[2025-02-04 13:53] LABS: Hematocrit 39.5 % (36-47); Hemoglobin 13.20 g/dL (11.27-16.99); Mean Corpuscular HGB Conc 33.4 g/dL (30-55); Mean Corpuscular Hemoglobin 27.5 pg (27-33); Mean Corpuscular Volume 82.3 fl (85-98); Nucleated Red Blood Cells % 0 %; Platelet Count 349 10^3/cmm (157-399); Red Blood Count 4.80 10^6/uL (3.85-5.65); White Blood Count 8.36 10^3/uL (3.29-11.43)
--- NOTE | 2025-02-04 13:53 | ED_ITS ---
HPI - Abdominal Pain 2 General: Chief Complaint: Abdominal Pain Stated Complaint: abd pain Time Seen by Provider: 02/04/25 13:38 History of Present Illness: 24-year-old female presents emergency ro om with abdominal pain x 3 weeks. She localizes pain to the left upper quadrant. She has outpatient CT scheduled but has not yet had it done. Patient has been increasing she denies any fever sweats chills no dysuria urgency or frequency no vomiting no hematochezia melena hematemesis cough cramps no recent trauma she has previously had a cholecystectomy no other abdominal surgeries Associated Symptoms: Reports nausea; Denies chills, coffee ground emesis, dysuria, fever(s), hematochezia, hematemesis and melena Related Data Previous Rx's ?Medication ?Instructions ?Recorded fluconazole 150 mg tablet 150 mg PO Q3D 2 doses #2 tab s 03/26/24 pantoprazole 40 mg tablet,delayed 40 mg PO BID 30 days #60 tabs 02/04/25 release (Protonix) Allergies Allergy/AdvReac Type Severity Reaction Status Date / Time grape flavor Allergy ALGY-Rash Verified 12/31/24 20:04 Review of Systems 2 Const: Denies: fever(s) or chills Card: Denies: chest pain Resp: Denies: dyspnea GI: Reports: abdominal pain and nausea; Denies: hematemesis, coffee ground emesis, hematochezia or melena : Denies: dysuria, urinary frequency or urinary urgency Musc: Denies: neck pain or back pain Skin/Breast: Denies: rash PFSH ED 2 PFSH: Surgical History H/O bilateral salpingectomy (~04/19/23) Status post laparoscopic cholecystectomy (08/20/21) History of wisdom tooth extraction Family History Mother Hypertension Denies family history of Colon cancer Ovarian cancer Diabetes Heart disease Hypercholesteremia Breast cancer Uterine cancer Thyroid disease Stroke Social History Smoking and tobacco/nicotine status: unknown if used tobacco/nicotine Physical Exam 2 Const: GENERAL APPEARANCE: cooperative ORIENTATION/CONSCIOUSNESS: Yes awake, Yes oriented to person, Yes oriented to place and Yes oriented to time HENMT: COMMON NORMALS: normocephalic, atraumatic and hearing grossly normal bilaterally HEAD & SCALP: normocephalic and atraumatic Resp: COMMON NORMALS: normal respiratory effort, No retractions, No use of accessory muscles and clear to auscultation bilaterally AUSCULTATION: clear to auscultation bilaterally Cardio: COMMON NORMALS: regular rate, regular rhythm and No murmurs present (Cardio) RATE: regular rate RHYTHM: regular rhythm GI: COMMON NORMALS: No hepatosplenomegaly present AUSCULTATION: Yes normoactive bowel sounds PALPATION: Yes Tenderness to palpation present (GI) Details: LUQ, No Guarding due to palpation present (GI) and Yes No hepatosplenomegaly present Extremity: COMMON NORMALS: normal to inspection, capillary refill normal, no clubbing, cyanosis or edema, no calf tenderness and no pedal edema Neuro: SENSORIUM/ORIENTATION: Yes oriented to person, Yes oriented to place and Yes oriented to time Skin: COMMON NORMALS: no rashes or lesions noted GENERAL SKIN EXAM: no rashes or lesions noted Course 2 Vital Signs: Vital signs: Vital Signs Temperature 98.1 F 02/04/25 13:38 Pulse Rate 78 02/04/25 13:38 Respiratory Rate 16 02/04/25 13:38 Blood Pressure 113/79 02/04/25 13:38 Pulse Oximetry 99 02/04/25 13:38 Oxygen Delivery Me thod Room Air 02/04/25 13:38 MDM - Abdominal Pain Medical Decision Making Labs and CT unremarkable. Patient has no significant lab abnormalities that were reviewed with the radiologist they did not appreciate anything in the urinary or bladder system no signs of nephrolithiasis. Patient did have a few red blood cells per high-power field but equal number squamous cells she has had some spotting recently. Will discharge her home on a PPI and have her follow-up with her primary care doctor as previously scheduled. Medical Records I reviewed the patient's medical records. Lab Data I reviewed the patient's lab results. 02/04/25 13:47 02/04/25 13:47 Labs/Radiology: Radiology Impressions Abdomen/Pelvis CT 02/04/25 14:41 IMPRESSION: 1. No mass, lymphadenopathy or acute finding in the abdomen or pelvis. Minor findings. Laboratory Results WBC 8.36 10^3/uL (3.29-11.43) 02/04/25 13:47 RBC 4.80 10^6/uL (3.85-5.65) 02/04/25 13:47 Hgb 13.20 g/dL (11.27-16.99) 02/04/25 13:47 Hct 39.5 % (36-47) 02/04/25 13:47 MCV 82.3 fl (85-98) L 02/04/25 13:47 MCH 27.5 pg (27-33) 02/04/25 13:47 MCHC 33.4 g/dL (30-55) 02/04/25 13:47 RDW 12.8 % (12.1-15.1) 02/04/25 13:47 Plt Count 349 10^3/cmm (157-399) 02/04/25 13:47 MPV 9.2 fL (7.4-10.4) 02/04/25 13:47 Neut % (Auto) 68.2 % 02/04/25 13:47 Lymph % (Auto) 23.6 % 02/04/25 13:47 Cook % (Auto) 6.6 % 02/04/25 13:47 Eos % (Auto) 1.0 % 02/04/25 13:47 Baso % (Auto) 0.2 % 02/04/25 13:47 Neut # (Auto) 5.71 10^3/uL (1.8-7.7) 02/04/25 13:47 Lymph # (Auto) 2.0 10^3/uL (0.8-4.8) 02/04/25 13:47 Cook # (Auto) 0.6 10^3/uL (0.2-0.9) 02/04/25 13:47 Eos # (Auto) 0.1 10^3/uL (0.0-0.8) 02/04/25 13:47 Baso # (Auto) 0.0 10^3/uL (0.0-0.1) 02/04/25 13:47 Nucleated RBC % (auto) 0 % 02/04/25 13:47 Nucleated RBCs # 0.0 /100WBC 02/04/25 13:47 Sodium 139 mmol/L (136-145) 02/04/25 13:47 Potassium 4.2 mmol/L (3.5-5.1) 02/04/25 13:47 Chloride 106 mmol/L (98-107) 02/04/25 13:47 Carbon Dioxide 24 mmol/L (22-29) 02/04/25 13:47 Anion Gap 13.2 (5-19) 02/04/25 13:47 BUN 12 mg/dL (6-20) 02/04/25 13:47 Creatinine 0.7 mg/dL (0.5-0.9) 02/04/25 13:47 GFR Calculation 103.7 mL/min (90-130) 02/04/25 13:47 Glucose 97 mg/dL (65-115) 02/04/25 13:47 Calculated Osmolality 288 mOsm/kg (285-295) 02/04/25 13:47 Calcium 9.2 mg/dL (8.5-10.5) 02/04/25 13:47 Total Bilirubin 0.3 mg/dL (0.15-1.2) 02/04/25 13:47 AST 17 U/L (0-32) 02/04/25 13:47 ALT 19 U/L (0-33) 02/04/25 13:47 Alkaline Phosphatase 71 U/L (35-105) 02/04/25 13:47 Total Protein 7.3 g/dL (6.6-8.7) 02/04/25 13:47 Albumin 4.2 g/dL (3.5-5.2) 02/04/25 13:47 Globulin 3.1 g/dL (1.3-4.6) 02/04/25 13:47 Lipase 25 U/L (13-60) 02/04/25 13:47 HCG, Qual Negative (Negative) 02/04/25 13:47 Urine Color Yellow (Yellow) 02/04/25 14:00 Urine Appearance Cloudy (CLEAR) A 02/04/25 14:00 Urine pH 5.5 (5-7) 02/04/25 14:00 Ur Specific [place] 1.026 (1.005-1.030) 02/04/25 14:00 Urine Protein Negative (Negative) 02/04/25 14:00 Urine Glucose (UA) Negative (Normal) 02/04/25 14:00 Urine Ketones Trace (Negative) 02/04/25 14:00 Urine Blood Negative (Negative) 02/04/25 14:00 Urine Nitrate Negative (Negative) 02/04/25 14:00 Urine Bilirubin Negative (Negative) 02/04/25 14:00 Urine Urobilinogen 0.2 mg/dL (Negative) 02/04/25 14:00 Ur Leukocyte Esterase Negative (Negative) 02/04/25 14:00 Urine RBC 11-20 /hpf (0-2) H 02/04/25 14:00 Urine WBC 6-10 /hpf (0-5) 02/04/25 14:00 Ur Squamous Epith Cells 11-20 /hpf (0-5) H 02/04/25 14:00 Amorphous Sediment Not Reportable 02/04/25 14:00 Urine Bacteria None seen /hpf (NONE) 02/04/25 14:00 Hyaline Casts 2.46 /lpf 02/04/25 14:00 All radiology interpretation(s) finalized by discharge Discharge Plan Discharge Patient Disposition: Home Clinical Impression: Abdominal pain, Dyspepsia Condition: Stable Prescriptions: New pantoprazole [Protonix] 40 mg tablet,delayed release (DR/EC) 40 mg PO BID 30 Days Qty: 60 0RF No Action fluconazole 150 mg tablet 150 mg PO Q3D Qty: 2 0RF Discharge Orders: Discharge ED (Routine); Ordered 02/04/25 Ordered By: Steven Ross Referrals: Kayla Gregg FNP [Primary Care Provider, Unknown] Discharge Diet: As Directed Discharge Activity: Increase activity as tolerated Patient Instructions: Diet for Stomach Ulcers and Gastritis (ED), GERD (Gastroesophageal Reflux Disease) (ED), Abdominal Pain (ED), Opioid Safety, Pain Management, Patient Portal & Felix Instructions Activity Restrictions/Additional Instructions: Thank you for choosing [facility] for your healthcare needs today. It is very important that you follow up as instructed or that you return to the Emergency Department should you have concerns or if your condition changes or worsens in any way. Emergency department visits are focused on emergent conditions, in some cases you may require further evaluation on an outpatient basis. You were seen in the emergency room with complaint of abdominal pain CT was negative your other labs were unremarkable. Recommend you start on pantoprazole 1 tablet twice a day for 10 days then 1 tablet daily follow-up with your primary care doctor. Follow the diet recommendations given in your discharge packet (Please note that included in your discharge packet is information concerning opioid safety and pain management. This information is given to all patients were discharged from the ER regardless of their discharge diagnosis or the medicines they usually take or are prescribed.) Print Language: Slovenian Coding Level of Care Code ED It Infrastructure Specialist for Ish Garcia
[2025-02-04 14:10] LABS: Alanine Aminotransferase 19 U/L (0-33); Albumin Level 4.2 g/dL (3.5-5.2); Alkaline Phosphatase 71 U/L (35-105); Anion Gap 13.2 (5-19); Aspartate Amino Transferase 17 U/L (0-32); Blood Urea Nitrogen 12 mg/dL (6-20); Calcium 9.2 mg/dL (8.5-10.5); Carbon Dioxide 24 mmol/L (22-29); Chloride 106 mmol/L (98-107); Creatinine Clr Calc Pharmacy 150.6083; Globulin 3.1 g/dL (1.3-4.6); Glucose 97 mg/dL (65-115); Lipase 25 U/L (13-60); Osmolality Calculated 288 mOsm/kg (285-295); Potassium 4.2 mmol/L (3.5-5.1); Sodium 139 mmol/L (136-145); Total Protein 7.3 g/dL (6.6-8.7)
[2025-02-04 14:11] LABS: Glucose Urine UA Negative (Normal); Nitrate Urine Negative (Negative); Specific Gravity, Urine 1.026 (1.005-1.030)
[2025-02-04 14:14] LABS: HCG, Serum Qual Negative (Negative)
[2025-02-04 14:14] LABS: Add Urine Microscopic? YES
[2025-02-04 14:40] LABS: UA Slide Review UA Slide Review Perf
--- NOTE | 2025-02-04 14:41 | CT_ITS ---
WS: [id number] Exam: CT abdomen pelvis con [id number] Date/Time of Exam: 02/04/2025 2:42 PM Reason For Exam: Abdominal pain DLP: 1064.[address] scans at [facility] use at least one of these dose optimization techniques: automated exposure control; mA and/or kV adjustment per patient size (includes targeted exams where dose is matched to clinical indication); or iterative reconstruction. CT scan of the abdomen without contrast. Comparison 02/18/2020 Lower lung zones are clear. Small calcified granuloma in the right lung base stable since previous study. The liver, spleen and pancreas appear normal. The gallbladder surgically absent. The stomach is unremarkable. The abdominal aorta is normal in caliber. Unremarkable adrenal glands and kidneys. The IVC is unremarkable. Small bowel loops are normal in caliber. No free air. No lymphadenopathy. Normal appendix visualized. No significant large bowel abnormality identified. No pelvic mass or lymphadenopathy. The uterus is unremarkable. Urinary bladder is smooth in contour. The ovaries are unremarkable . Small fat filled umbilical hernia. No destructive bone lesions. CT/CT abdomen pelvis con [id number] IMPRESSION: 1. No mass, lymphadenopathy or acute finding in the abdomen or pelvis. Minor fi ndings.
[2025-02-04] MEDS: lidocaine 2% viscous 15 ML, aluminum-mag hydrox-simethicon 30 ML, sucralfate oral liq 1 GM PO (15:58)
== END 2025-02-04 16:00 | disposition home or self-care (01) ==
PROVIDERS: Physician Assistant; Emergency Provider Family Medicine; PCP Nurse Practitioner Family
DX: R10.12 Left upper quadrant pain (principal); R10.13 Epigastric pain
CPT/HCPCS: 36415; 74176; 80053; 81001; 83690; 84703; 85025; 99284; J9999